=== PATIENT | male | born 1980 | race Asian ===

== ENCOUNTER 2018-07-01 09:12 | Emergency (ER) | payer BC ==
[~2018-07-01] VITALS: Ht 167.6 cm; Wt 63.5 kg
[2018-07-01] MEDS ORDERED: IBUPROFEN 400 MG TABLET. PO ONE (09:45)
[2018-07-01] MEDS ORDERED: IV NORMAL SALINE 1000ML BAG 1,000 ML IV ONE ×3 (09:45→11:00)
[2018-07-01] MEDS ORDERED: ACETAMINOPHEN 500 MG TABLET PO ONE (09:45)
--- NOTE | 2018-07-01 09:50 | PHYS DOC ---
Adult General Chief Complaint Chief Complaint: FEVER HPI HPI 37-year-old male presents to ER via POV for complaints of onset of fever, headache, and generalized fatigue last night. Family member is translating as patient speaks no [place]. Patient took ibuprofen last night at 9 PM denies any medications today. Patient's family member denies any other family members with similar illness. Patient denies any vision changes, dizziness, or vision loss. Patient has photosensitivity. Patient denies any neck pain or stiffness. Pt is a former smoker. Denies any recent travel or other illness. Review of Systems Review of Systems Constitutional: Reports fever and generalized fatigue Eyes: Denies change in visual acuity, redness, or eye pain. Reports photosensitivity HENT: Denies nasal congestion or sore throat. Denies neck pain or stiffness Respiratory: Denies cough or shortness of breath [] Cardiovascular: Denies chest pain or palpitations GI: Denies abdominal pain, nausea, vomiting, bloody stools or diarrhea [] : Denies hematuria. Reports dysuria Musculoskeletal: Denies back pain or joint pain [] Integument: Denies rash or skin lesions [] Neurologic: Denies focal weakness or sensory changes. Reports generalized headache. Denies dizziness or lightheadedness. Family denies loss of consciousness or change in behavior All other systems were reviewed and found to be within normal limits, except as documented in this note. Current Medications Current Medications Current Medications Medications (Trade) Dose Ordered Sig/[facility] Start Time Stop Time Status Last Admin Dose Admin Acetaminophen (Tylenol) 1,000 mg 1X ONCE 07/01/18 09:45 07/01/18 09:49 DC 07/01/18 09:56 1,000 MG Ibuprofen (Motrin) 600 mg 1X ONCE 07/01/18 09:45 07/01/18 09:49 DC 07/01/18 09:57 600 MG Sodium Chloride 1,000 ml @ 1,000 mls/hr 1X ONCE 07/01/18 11:00 07/01/18 11:59 DC 07/01/18 11:12 1,000 MLS/HR Allergies Allergies Allergies Coded Allergies Type Severity Reaction Last Updated Verified No Known Drug Allergies 07/01/18 No Physical Exam Physical Exam Constitutional: Well developed, well nourished, no acute distress, non-toxic appearance. Fatigued appearance HENT: Normocephalic, atraumatic, bilateral ears normal, mucous membranes pink/dry- no pharyngeal swelling/erythema, no oral exudates, nose normal. [] Eyes: 3mm PERRLA, EOMI, no nystagmus, conjunctiva normal, no discharge. [] Neck: Normal range of motion, no tenderness/nuchal rigidity, supple, no stridor/gross adenopathy Cardiovascular: Tachycardic heart rate regular rhythm- temp. 100.0, no murmur [] Lungs & Thorax: Bilateral breath sounds clear to auscultation- resp. equal/nonlabored Abdomen: Bowel sounds normal, soft- no distention/rigidity, no tenderness, no masses, no pulsatile masses. [] Skin: Warm, dry, no erythema, no rash. [] Back: No tenderness, no CVA tenderness. [] Extremities: No tenderness, no cyanosis, no clubbing, ROM intact, no edema. [] Neurologic: Alert and oriented X 3, normal motor function, normal sensory function, no focal deficits noted. [] Psychologic: Affect normal, judgement normal, mood normal. [] Current Patient Data Vital Signs Vital Signs Date Time Temp Pulse Resp B/P (MAP) Pulse Ox O2 Delivery O2 Flow Rate FiO2 07/01/18 11:00 100.0 108 19 110/56 (74) 97 100.0 07/01/18 10:30 Room Air Lab Values Laboratory Tests Test 07/01/18 09:45 07/01/18 10:56 White Blood Count 5.7 x10^3/uL (4.0-11.0) Red Blood Count 5.16 x10^6/uL (4.30-5.70) Hemoglobin 14.7 g/dL (13.0-17.5) Hematocrit 43.3 % (39.0-53.0) Mean Corpuscular Volume 84 fL (79-100) Mean Corpuscular Hemoglobin 29 pg (25-35) Mean Corpuscular Hemoglobin Concent 34 g/dL (31-37) Red Cell Distribution Width 12.7 % (11.5-14.5) Platelet Count 157 x10^3/uL (140-400) Neutrophils (%) (Auto) 73 % (31-73) Lymphocytes (%) (Auto) 18 % (24-48) L Monocytes (%) (Auto) 6 % (0-9) Eosinophils (%) (Auto) 3 % (0-3) Basophils (%) (Auto) 0 % (0-3) Neutrophils # (Auto) 4.1 x10^3uL (1.8-7.7) Lymphocytes # (Auto) 1.0 x10^3/uL (1.0-4.8) Monocytes # (Auto) 0.4 x10^3/uL (0.0-1.1) Eosinophils # (Auto) 0.2 x10^3/uL (0.0-0.7) Basophils # (Auto) 0.0 x10^3/uL (0.0-0.2) Sodium Level 144 mmol/L (136-145) Potassium Level 3.8 mmol/L (3.5-5.1) Chloride Level 107 mmol/L (98-107) Carbon Dioxide Level 25 mmol/L (21-32) Anion Gap 12 (6-14) Blood Urea Nitrogen 19 mg/dL (8-26) Creatinine 0.9 mg/dL (0.7-1.3) Estimated GFR (Cockcroft-Gault) 93.9 BUN/Creatinine Ratio 21 (6-20) H Glucose Level 105 mg/dL (70-99) H Lactic Acid Level 1.0 mmol/L (0.4-2.0) Calcium Level 9.5 mg/dL (8.5-10.1) Magnesium Level 1.8 mg/dL (1.8-2.4) Total Bilirubin 1.2 mg/dL (0.2-1.0) H Aspartate Amino Transferase (AST) 22 U/L (15-37) Alanine Aminotransferase (ALT) 43 U/L (16-63) Alkaline Phosphatase 66 U/L (46-116) Total Protein 7.9 g/dL (6.4-8.2) Albumin 4.3 g/dL (3.4-5.0) Albumin/Globulin Ratio 1.2 (1.0-1.7) Influenza Type A Antigen Negative (NEGATIVE) Influenza Type B Antigen Negative (NEGATIVE) Urine Collection Type Unknown Urine Color Yellow Urine Clarity Clear Urine pH 6.5 Urine Specific [place] 1.025 Urine Protein Negative mg/dL (NEG-TRACE) Urine Glucose (UA) Negative mg/dL (NEG) Urine Ketones (Stick) Negative mg/dL (NEG) Urine Blood Negative (NEG) Urine Nitrite Negative (NEG) Urine Bilirubin Negative (NEG) Urine Urobilinogen Dipstick 0.2 mg/dL (0.2 mg/dL) Urine Leukocyte Esterase Negative (NEG) Urine RBC 0 /HPF (0-2) Urine WBC Occ /HPF (0-4) Urine Squamous Epithelial Cells Occ /LPF Urine Bacteria Few /HPF (0-FEW) Urine Mucus Slight /LPF Laboratory Tests 07/01/18 09:45 Laboratory Tests 07/01/18 09:45 EKG EKG [] Radiology/Procedures Radiology/Procedures PROCEDURE: CHEST PA & LATERAL CHEST PA LATERAL Clinical indications: Fever. COMPARISON: None available. Findings: No acute lung infiltrate or pleural effusion or pulmonary edema or lung mass or pneumothorax is seen. Mild cardiomegaly is evident. The pulmonary vasculature, mediastinum and both dianne are unremarkable. The osseous structures appear intact. Impression: Mild cardiomegaly. No acute infiltrate. Electronically signed by: Anna Oakes MD (07/01/2018 11:22 AM) [facility] DICTATED and SIGNED BY: ANNA OAKES MD DATE: 07/01/18 112 Course & Med Decision Making Course & Med Decision Making Pertinent Labs and Imaging studies reviewed. (See chart for details) 1100: On reevaluation following fluids, ibuprofen, and Tylenol patient reports headache and fatigue has improved. RN reports patient was ambulatory at bedside and was able to urinate. Vital signs 116/60 heart rate 110 O2 saturation 98% on room air respirations 16. Patient is in no visible distress continues to deny chest pain, shortness of air, neck stiffness, or vision changes. He reports his headache has improved denying any dizziness. Patient will be provided with additional liter of fluids and labs are pending. Chest x-ray will be obtained for further evaluation for possible cause of fever. Chest x-ray with report of mild cardiomegaly otherwise no acute findings. Test results were discussed with patient and his family. Negative flu, UA unremarkable, WBCs normal limits at 5.7 with normal lactic acid at 1.0. Patient appears less fatigued and reports feeling much better. Discussed with improved symptoms possible viral illness and plans were for home discharge with education on symptomatic treatment. Rate 102 with temperature 99.9 respirations 16. Patient is nontoxic in appearance and in no visible distress. Pt comfortable with home discharge w/improved sxs. Education provided on signs and symptoms to return to ER. Discharge instructions were discussed. Patient to follow-up with primary care physician if symptoms persist or with any concerns. Ruel Disclaimer Ruel Disclaimer This electronic medical record was generated, in whole or in part, using a voice recognition dictation system. Departure Departure Impression: Primary Impression: Fever Additional Impression: Viral illness Referrals: NO PCP (PCP) Patient Instructions: Fever, Adult, Viral Syndrome Additional Instructions: Tylenol and/or ibuprofen as needed for pain/fever as directed on container. Drink plenty of fluids and eat well-balanced meals. Follow-up with primary care physician if symptoms persist or with any concerns. Problem Qualifiers SHARI RIVERA APRN July 01, 2018 09:50
[2018-07-01 10:59] LABS: BASO % 0 % (0-3); EOS # 0.2 x10^3/uL (0.0-0.7); EOS % 3 % (0-3); HEMATOCRIT 43.3 % (39.0-53.0); HEMOGLOBIN 14.7 g/dL (13.0-17.5); LYMPH % 18 % (24-48); MEAN CORPUSCULAR HEMOGLOBIN 29 pg (25-35); MEAN CORPUSCULAR HGB CONC 34 g/dL (31-37); MEAN CORPUSCULAR VOLUME 84 fL (79-100); MONO # 0.4 x10^3/uL (0.0-1.1); MONO % 6 % (0-9); NEUT # 4.1 x10^3uL (1.8-7.7); NEUT % 73 % (31-73); PLATELET COUNT 157 x10^3/uL (140-400); RED BLOOD COUNT 5.16 x10^6/uL (4.30-5.70); RED CELL DISTRIBUTION WIDTH 12.7 % (11.5-14.5); WHITE BLOOD COUNT 5.7 x10^3/uL (4.0-11.0)
[2018-07-01 11:00] VITALS: BP 110/56
[2018-07-01 11:03] LABS: INFLUENZA A PATIENT NEGATIVE (NEGATIVE); INFLUENZA B PATIENT NEGATIVE (NEGATIVE)
[2018-07-01 11:09] LABS: CALCIUM 9.5 mg/dL (8.5-10.1); CREATININE 0.9 mg/dL (0.7-1.3); GFR 93.9; POTASSIUM 3.8 mmol/L (3.5-5.1)
[2018-07-01 11:14] LABS: ALBUMIN 4.3 g/dL (3.4-5.0); ALBUMIN/GLOBULIN RATIO 1.2 (1.0-1.7); MAGNESIUM 1.8 mg/dL (1.8-2.4); TOTAL BILIRUBIN 1.2 mg/dL (0.2-1.0); TOTAL PROTEIN 7.9 g/dL (6.4-8.2)
[2018-07-01 11:20] LABS: BILIRUBIN,URINE NEGATIVE (NEG); CLARITY,URINE CLEAR; COLOR,URINE YELLOW; NITRITE,URINE NEGATIVE (NEG); PH,URINE 6.5; PROTEIN,URINE NEGATIVE (NEG-TRACE); UROBILINOGEN,URINE 0.2 mg/dL (0.2 mg/dL)
--- NOTE | 2018-07-01 11:25 | RAD ---
CHEST PA LATERAL Clinical indications: Fever. COMPARISON: None available. Findings: No acute lung infiltrate or pleural effusion or pulmonary edema or lung mass or pneumothorax is seen. Mild cardiomegaly is evident. The pulmonary vasculature, mediastinum and both dianne are unremarkable. The osseous structures appear intact. Impression: Mild cardiomegaly. No acute infiltrate. Electronically signed by: Addison Oakes MD (07/01/2018 11:22 AM) [facility]
[2018-07-01 11:30] LABS: SQUAMOUS EPITHELIAL CELL,UR OCC /LPF
[2018-07-01 11:31] LABS: RBC,URINE 0 /HPF (0-2); WBC,URINE OCC /HPF (0-4)
[2018-07-01 11:32] LABS: BACTERIA,URINE FEW /HPF (0-FEW)
[2018-07-04] MEDS ORDERED: DOXY100T PO (09:59)
[2018-07-04] MEDS ORDERED: IBUP-1027 PO (09:59)
== END 2018-07-01 11:55 | disposition home or self-care (01) ==
LOC: ER 09:12
DX: B33.8 Other specified viral diseases (principal); R50.9 Fever, unspecified; R51 Headache; R53.83 Other fatigue; R00.0 Tachycardia, unspecified
CPT/HCPCS: 99285; J7030; 36415; 71046; 80053; 81001; 83605; 83735; 85025; 87804